=== PATIENT | female | born 1940 | race Caucasian/White ===

== ENCOUNTER → 2016-12-01 | Outpatient (CLI) | payer MEDICARE, MEDICAID ==
[~2016-12-01] MED LIST: ALENDRONATE SOD70 M1 PO; ASPIR 8181 MG; CARBAMAZEPINE200 M1 PO; CIPRO PO; CITRACAL + D 251 TAB PO; DIFLUCAN 200MG200 MG PO; GABAPENTIN 600600 MG PO; LIPITOR20 MG PO; MULTI VITAMINS1 TAB PO; NIACIN TIME RE500 MG PO; NYSTATIN OINTME15 GM EX; OMEGA-31000 MG PO; PROBIOTIC PO; SIMVASTATIN40 MG PO; VITAMIN C500 M1 PO; XARELTO15 MG PO
[2016-12-01 14:20] LABS: BILIRUBIN, INDIRECT 0.11 mg/dL (0-0.9)
== END ==
LOC: CARL-LAB 11:11
PROVIDERS: Internal Medicine Interventional Cardiology
DX: E78.00 Pure hypercholesterolemia, unspecified (principal)

== ENCOUNTER → 2017-03-28 | Outpatient (CLI) | payer MEDICARE, MEDICAID ==
[2017-03-28 13:18] LABS: LYMPH # 1.1 K/mm3 (0.7-4.5)
[2017-03-28 13:25] LABS: HEMOGLOBIN 10.7 g/dL (12.2-16.2)
[2017-03-28 13:59] LABS: BILIRUBIN, INDIRECT 0.31 mg/dL (0-0.9)
[2017-03-28 15:20] LABS: NEUTROPHILS 44 % (42-76)
== END ==
LOC: CARL-LAB 09:20
PROVIDERS: Internal Medicine Interventional Cardiology; Internal Medicine Medical Oncology
DX: C56.1 Malignant neoplasm of right ovary (principal); C56.2 Malignant neoplasm of left ovary; Z79.899 Other long term (current) drug therapy; E78.00 Pure hypercholesterolemia, unspecified